=== PATIENT | female | born 1955 | race Caucasian/White ===

== ENCOUNTER 2019-08-20 14:02 | Emergency (ER) | payer OTHER ==
--- NOTE | 2019-08-20 14:57 | ER ---
Nurse's Notes [facility] Name: Ariela Clarke Age: 64 yrs Sex: Female : 1955 Arrival Date: 08/20/2019 Time: 14:05 Bed 24 Private MD: Jermaine Rush Diagnosis: Superficial foreign body of throat Presentation: 08/20 14:16 Presenting complaint: Patient states: thinks she has a piece of plastic film stuck in iw her throat , thinks she accidentally swallowed it with her tea. Transition of care: patient was not received from another setting of care. Onset of symptoms was August 20, 2019. Risk Assessment: Do you want to hurt yourself or someone else? Patient reports no desire to harm self or others. Initial Sepsis Screen: Does the patient meet any 2 criteria? No. Patient's initial sepsis screen is negative. Does the patient have a suspected source of infection? No. Patient's initial sepsis screen is negative. Care prior to arrival: None. 14:16 Method Of Arrival: Ambulatory 14:16 Acuity: ROSELIA 4 iw Historical: - Allergies: 14:18 No Known Allergies; iw - Home Meds: 14:18 finasteride oral oral [Active]; hydroxychloroquine oral oral [Active]; iw - PMHx: 14:18 alopecia; iw - PSHx: 14:18 ; iw - Immunization history:: Adult Immunizations up to date. - Coronavirus screen:: The patient has NOT traveled to [place] in the past 14 days. Proceed with normal triage process as indicated. - Social history:: Smoking status: Patient denies any tobacco usage or history of. - Ebola Screening: : Patient negative for fever greater than or equal to 101.5 degrees Fahrenheit, and additional compatible Ebola Virus Disease symptoms Patient denies exposure to infectious person Patient denies travel to an Ebola-affected area in the 21 days before illness onset No symptoms or risks identified at this time. Screenin:29 Abuse screen: Denies threats or abuse. Denies injuries from another. Nutritional ca1 screening: No deficits noted. Tuberculosis screening: No symptoms or risk factors identified. Fall Risk None identified. Assessment: 14:29 General: Appears in no apparent distress. comfortable, Behavior is calm, cooperative, ca1 appropriate for age. Neuro: Level of Consciousness is awake, alert, obeys commands, Oriented to person, place, time, situation. Respiratory: Airway is patent Respiratory effort is even, unlabored, Respiratory pattern is regular, symmetrical, Breath sounds are clear bilaterally. Derm: Skin is intact, is healthy with good turgor, Skin is pink, warm \T\ dry. Musculoskeletal: Circulation, motion, and sensation intact. Capillary refill < 3 seconds. 14:31 Pain: Denies pain. ca1 Vital Signs: 14:18 BP 144 / 95; Pulse 65; Resp 16; Temp 97.8; Pulse Ox 100% on R/A; Weight 67.13 kg; iw Height 5 ft. 6 in. (167.64 cm); Pain 0/10; 14:18 Body Mass Index 23.89 (67.13 kg, 167.64 cm) iw ED Course: 14:05 Patient arrived in ED. mr 14:05 Jermaine Rush MD is Private Physician. mr 14:17 Triage completed. iw 14:18 [facility] jr8 14:18 Zaire Cali MD is Attending Physician. jr8 14:19 Arm band placed on. iw 14:29 Patient has correct armband on for positive identification. Bed in low position. Call ca1 light in reach. Side rails up X 1. Pulse ox on. NIBP on. 14:31 Inés Gutierrez RN is Primary Nurse. ca1 14:40 Diet: Patient given water. mg2 14:56 Zenaida Gonzalez MD is Referral Physician. jr8 14:59 No provider procedures requiring assistance completed. Patient did not have IV access ca1 during this emergency room visit. Administered Medications: No medications were administered Outcome: 14:56 Discharge ordered by . jr8 14:59 Discharged to home ambulatory. ca1 14:59 Condition: stable 14:59 Discharge instructions given to patient, Instructed on discharge instructions, follow up and referral plans. Demonstrated understanding of instructions, follow-up care. 15:01 Patient left the ED. ca1 Signatures: Tank Malinda boggs Gabriela Thompson, ERNESTO RN iw Guilherme Nevarez PA PA jr8 Robert Ortiz RN RN mg2 Inés Gutierrez RN RN ca1 Corrections: (The following items were deleted from the chart) 14:52 14:16 Presenting complaint: Patient states: thinks she has a baker of plastic film iw stuck in her throat , thinks she accidentally swallowed it with her tea iw
--- NOTE | 2019-08-20 14:57 | EDPHYS ---
Physician Documentation [facility] Name: Ariela Clarke Age: 64 yrs Sex: Female : 1955 Arrival Date: 08/20/2019 Time: 14:05 Bed 24 Private MD: Jermaine Rush ED Physician Zaire Cali HPI: 08/20 14:44 This 64 yrs old Female presents to ER via Ambulatory with complaints of jr8 Foreign Body In Throat. 14:44 The patient or guardian reports the patient has a suspected foreign body, of the jr8 throat. The reported likely foreign body is piece of plastic. Onset: The symptoms/episode began/occurred acutely, today. Current symptoms: pain, in the area of the foreign body, in the throat. The patient has not experienced similar symptoms in the past. The patient has not recently seen a physician. Stated that she thinks she accidently swallowed a small piece of plastic that she had dropped. Denies coughing, shortness of breath, or vomiting. Feels like it is stuck at top of throat . Historical: - Allergies: 14:18 No Known Allergies; iw - Home Meds: 14:18 finasteride oral oral [Active]; hydroxychloroquine oral oral [Active]; iw - PMHx: 14:18 alopecia; iw - PSHx: 14:18 ; iw - Immunization history:: Adult Immunizations up to date. - Coronavirus screen:: The patient has NOT traveled to [place] in the past 14 days. Proceed with normal triage process as indicated. - Social history:: Smoking status: Patient denies any tobacco usage or history of. - Ebola Screening: : Patient negative for fever greater than or equal to 101.5 degrees Fahrenheit, and additional compatible Ebola Virus Disease symptoms Patient denies exposure to infectious person Patient denies travel to an Ebola-affected area in the 21 days before illness onset No symptoms or risks identified at this time. ROS: 14:44 ENT: Positive for pain to throat Neck: Negative for injury, pain, and swelling, jr8 Cardiovascular: Negative for chest pain, palpitations, and edema, Respiratory: Negative for shortness of breath, cough, wheezing, and pleuritic chest pain, Abdomen/GI: Negative for abdominal pain, nausea, vomiting, diarrhea, and constipation, Back: Negative for injury and pain, Skin: Negative for injury, rash, and discoloration, Neuro: Negative for headache, weakness, numbness, tingling, and seizure. Exam: 14:44 Eyes: Pupils equal round and reactive to light, extra-ocular motions intact. Lids and jr8 lashes normal. Conjunctiva and sclera are non-icteric and not injected. Cornea within normal limits. Periorbital areas with no swelling, redness, or edema. ENT: Nares patent. No nasal discharge, no septal abnormalities noted. Tympanic membranes are normal and external auditory canals are clear. Oropharynx with no redness, swelling, or masses, exudates, or evidence of obstruction, uvula midline. Mucous membranes moist. Neck: Trachea midline, no thyromegaly or masses palpated, and no cervical lymphadenopathy. Supple, full range of motion without nuchal rigidity, or vertebral point tenderness. No Meningismus. Cardiovascular: Regular rate and rhythm with a normal S1 and S2. No gallops, murmurs, or rubs. Normal PMI, no JVD. No pulse deficits. Respiratory: Lungs have equal breath sounds bilaterally, clear to auscultation and percussion. No rales, rhonchi or wheezes noted. No increased work of breathing, no retractions or nasal flaring. Abdomen/GI: Soft, non-tender, with normal bowel sounds. No distension or tympany. No guarding or rebound. No evidence of tenderness throughout. Back: No spinal tenderness. No costovertebral tenderness. Full range of motion. Skin: Warm, dry with normal turgor. Normal color with no rashes, no lesions, and no evidence of cellulitis. MS/ Extremity: Pulses equal, no cyanosis. Neurovascular intact. Full, normal range of motion. Neuro: Awake and alert, GCS 15, oriented to person, place, time, and situation. Cranial nerves II-XII grossly intact. Motor strength 5/5 in all extremities. Sensory grossly intact. Cerebellar exam normal. Normal gait. Vital Signs: 14:18 BP 144 / 95; Pulse 65; Resp 16; Temp 97.8; Pulse Ox 100% on R/A; Weight 67.13 kg; iw Height 5 ft. 6 in. (167.64 cm); Pain 0/10; 14:18 Body Mass Index 23.89 (67.13 kg, 167.64 cm) iw MDM: 14:18 Patient medically screened. jr8 14:55 Data reviewed: vital signs, nurses notes, and as a result, I will discharge patient. jr8 Data interpreted: Pulse oximetry: on room air is 100 %. Interpretation: normal. Counseling: I had a detailed discussion with the patient and/or guardian regarding: the historical points, exam findings, and any diagnostic results supporting the discharge/admit diagnosis, the need for outpatient follow up, an ENT specialist, to return to the emergency department if symptoms worsen or persist or if there are any questions or concerns that arise at home. ED course: Patient has no stridor, coughing, or airway obstruction. Can swallow food and fluids. Feels better after drinking some water here. Will f/u with ENT in next couple of days if she feels it is still present. Knows to come back if worse . Administered Medications: No medications were administered Disposition: 15:05 Co-signature as Attending Physician, Zaire Cali MD. rn Disposition: 08/20/19 14:56 Discharged to Home. Impression: Superficial foreign body of throat. - Condition is Stable. - Discharge Instructions: Swallowed Foreign Body, Adult. - Medication Reconciliation Form, Thank You Letter, Antibiotic Education, Prescription Opioid Use form. - Follow up: Zenaida Gonzalez MD; When: 48 Hours; Reason: Recheck today's complaints, Continuance of care, Re-evaluation by your physician. - Problem is new. - Symptoms have improved. Signatures: Gabriela Thompson RN RN Zaire Ferrell MD MD rn Roszak, Josh, PA PA jr8 Inés Gutierrez RN RN ca1 Corrections: (The following items were deleted from the chart) 15:01 14:56 08/20/2019 14:56 Discharged to Home. Impression: Superficial foreign body of ca1 throat. Condition is Stable. Forms are Medication Reconciliation Form, Thank You Letter, Antibiotic Education, Prescription Opioid Use. Follow up: Zenaida Gonzalez; When: 48 Hours; Reason: Recheck today's complaints, Continuance of care, Re-evaluation by your physician. Problem is new. Symptoms have improved. jr8
[2019-08-20 15:26] VITALS: BP 144/95; TEMP 97.8; O2SAT 100
== END 2019-08-20 15:01 | disposition home or self-care (01) ==
LOC: ER 14:02
DX: S10.15XA Superficial foreign body of throat, initial encounter (principal); X58.XXXA Exposure to other specified factors, initial encounter; Y93.89 Activity, other specified; Y92.9 Unspecified place or not applicable
CPT/HCPCS: 99283